=== PATIENT | female | born 1955 | race African-American/Black ===

== ENCOUNTER 2023-04-01 09:03 | Emergency (ER) | payer OTHER ==
[~2023-04-01] VITALS: Ht 157.5 cm; Wt 73.0 kg
[2023-04-01 10:16] VITALS: BP 157/87; PULSE 57; RESP 16; O2SAT 98
[2023-04-01] MEDS ORDERED: KETOROLAC TROMETH 30 MG/ML 1ML VIAL IM ONE (11:00)
[2023-04-01] MEDS ORDERED: ACETAMINOPHEN 500 MG TAB PO ONE (11:00)
[2023-04-01 12:17] VITALS: TEMP 97.7
[2023-04-01] MEDS ORDERED: NABU-72 PO (12:31)
== END 2023-04-01 12:36 | disposition home or self-care (01) ==
LOC: ER 09:03
DX: R51.9 Headache, unspecified (principal); Z79.899 Other long term (current) drug therapy
CPT/HCPCS: 70450; 96372; 99285; J1885

== ENCOUNTER 2023-08-27 09:32 | Emergency (ER) | payer OTHER ==
[~2023-08-27] VITALS: Ht 157.5 cm; Wt 72.9 kg
[~2023-08-27 09:32] MED LIST: NABU-72 PO
[2023-08-27 10:47] LABS: Eosinophils # (auto) 0.1 10 ^3/uL (0-0.8); Lymphocytes # (auto) 1.8 10 ^3/uL (0.4-5.4); Monocytes # (auto) 0.3 10 ^3/uL (0-1.3); Monocytes % (auto) 4.5 % (0.0-12.0)
[2023-08-27 10:49] LABS: Basophils # (auto) 0.1 10 ^3/uL (0-0.2); Basophils % (auto) 0.8 % (0.0-2.0); Eosinophils % (auto) 1.4 % (0.0-7.0); Hematocrit 34.5 % (36.0-46.0); Lymphocytes % (auto) 25.3 % (10.0-50.0); Mean Corpuscular Hemoglobin 23.7 pg (28.0-32.0); Mean Corpuscular Hgb Conc. 31.9 g/dL (32.0-36.0); Mean Corpuscular Volume 74.3 fL (80.0-100.0); Red Blood Cells 4.64 10^6/uL (4.0-5.20); Red Cell Distribution Width 18.2 % (11.8-14.3); White Blood Cell 7.3 10^3/uL (4.4-10.8)
[2023-08-27 10:58] LABS: Chloride 107 mmol/L (98-107); Potassium 3.9 mmol/L (3.5-5.1); Sodium 138 mmol/L (136-145)
[2023-08-27 10:59] LABS: Anion Gap 6 (5-15); Calcium 10.2 mg/dL (8.5-10.1); Carbon Dioxide 25 mmol/L (20-30)
[2023-08-27 11:02] VITALS: PULSE 65; RESP 18; TEMP 97.5; O2SAT 100
[2023-08-27 11:04] LABS: Blood Urea Nitrogen 23 mg/dL (9-23); Glucose 106 mg/dL (74-106)
[2023-08-27 11:06] LABS: Urine Bacteria None Seen /hpf (None Seen)
[2023-08-27 11:26] LABS: Urine Blood Negative /uL (Negative); Urine Clarity Clear (Clear); Urine Color Colorless (Yellow); Urine Protein, UAD Negative (Negative); Urine Specific Gravity 1.009 (1.001-1.035); Urine Urobilinogen Normal (Negative); Urine WBC 4 /hpf (0 - 5); Urine pH 5.5 (5.0-9.0)
[2023-08-27] MEDS ORDERED: CIPR-173 PO (11:49)
[2023-08-27 11:54] VITALS: BP 151/80; PULSE 60; RESP 16; O2SAT 99
== END 2023-08-27 11:59 | disposition home or self-care (01) ==
LOC: ER 09:32
DX: N39.0 Urinary tract infection, site not specified (principal); R42 Dizziness and giddiness; I10 Essential (primary) hypertension; Z98.890 Other specified postprocedural states
CPT/HCPCS: 36415; 70450; 80048; 81001; 85025

== ENCOUNTER 2024-10-01 16:15 | Inpatient (IN) | payer OTHER ==
[~2024-10-01] VITALS: Ht 157.5 cm; Wt 85.6 kg
[~2024-10-01 16:15] MED LIST changes: +CIPR-173 PO
--- NOTE | 2024-10-01 17:07 | ED.PDOC ---
HPI (NEURO) HPI Comments This is a 69 year old female presents to the ED with chief complaint of headache. Patient reports that she has been experience a headache with associated generalized malaise for the past 2 days. Patient relays that she also had episodes of nausea and vomiting, but it has since resolved. Patient noted in triage to have a BP of 80/51 but does have a history of hypertension and states that she is medication compliant. Patient does not consistently take her blood pressure for true evaluation. Patient denies any abdominal pain, chest pain, SOB, dizziness, fever, or chills. Chief Complaint: Low Blood Pressure Time Seen by MD: 17:03 Primary Care Provider: Unknown Reviewed Notes: Nurses Notes, Medications, Allergies Information Source: Patient Mode of Arrival: Ambulatory Severity: Moderate Headache Severity: Moderate Timing: Hours Duration: Since onset Prehospital treatment: None Headache Quality: Aching Headache Location: Generalized Onset: At rest Circumstances: Spontaneous Before: Normal History of: None Associated Signs and Symptoms: Headache, Weakness Past Medical History PAST MEDICAL HISTORY: HTN Surgical History: , Tubal Ligation SENIOR TECHNICAL EDITOR History: No Pertinent SENIOR TECHNICAL EDITOR History Family History Family History: Reviewed,noncontributory to illness, Family hx of HTN Social History Smoker: Non-Smoker Alcohol: Denies ETOH Use Drugs: Denies Drug Use Lives In: Home Constitutional: reports: fatigue, malaise, weakness; denies: chills, diaphoresis, fever, sweats, others EENTM: denies: blurred vision, double vision, ear bleeding, ear discharge, ear drainage, ear pain, ear ringing, eye pain, eye redness, hearing loss, mouth pain, mouth swelling, nasal discharge, nose bleeding, nose congestion, nose pain, photophobia, tearing, throat pain, throat swelling, voice changes, others Respiratory: denies: cough, hemoptysis, orthopnea, SOB at rest, shortness of breath, SOB with excertion, stridor, wheezing, others Cardiovascular: denies: chest pain, dizzy spells, diaphoresis, Dyspnea on exertion, edema, irregular heart beat, left arm pain, lightheadedness, palpitations, PND, syncope, others Gastrointestinal: reports: nausea, vomiting; denies: abdomen distended, abdominal pain, blood streaked bowels, constipated, diarrhea, dysphagia, difficulty swallowing, hematemesis, melena, poor appetite, poor fluid intake, rectal bleeding, rectal pain, others Genitourinary: denies: abnormal vagina bleeding, burning, dyspareunia, dysuria, flank pain, frequency, hematuria, incontinence, pain, , vagina discharge, urgency, others Neurological: reports: headache; denies: dizziness, fainting, left sided numbness, left sided weakness, numbness, paresthesia, pre-existing deficit, right sided numbness, right sided weakness, seizure, speech problems, tingling, tremors, weakness, others Musculoskeletal: denies: back pain, gout, joint pain, joint swelling, muscle pain, muscle stiffness, neck pain, others Integumetry: denies: bruises, change in color, change in hair/nails, dryness, laceration, lesions, lumps, rash, wounds, others Allergic/Immunocompromised: denies: Difficulty Healing, Frequent Infections, Hives, Itching, others Hematologic/Lymphatic: denies: anemia, blood clots, easy bleeding, easy bruising, swollen glands, others Endocrine: denies: excessive hunger, excessive sweating, excessive thirst, excessive urination, flushing, intolerance to cold, intolerance to heat, unexplained weight gain, unexplained weight loss, others Psychiatric: denies: anxiety, bipolar disorder, depression, hopeless, panic disorder, schizophrenia, sleepless, suicidal, others All Other Systems: Reviewed and Negative Physical Exam General Appearance: Moderate Distress ([id number] distress due to headache and weakness concerns. Patient appears to be in poor overall health.), Normal HEENT: Head (Cranial evaluation was unremarkable. No signs of trauma. No skull depressions or deformities.), Normal ENT Inspection, Pharynx Normal, TMs Normal Neck: Full Range of Motion, Non-Tender, Normal, Normal Inspection Respiratory: Chest Non-Tender, Lungs Clear, No Accessory Muscle Use, No Respiratory Distress, Normal Breath Sounds Cardiovascular: No Edema, No JVD, No Murmur, No Gallop, Normal Peripheral Pulses, Regular Rate/Rhythm Breast Exam: Deferred Gastrointestinal: No Organomegaly, Non Tender, No Pulsatile Mass, Normal Bowel Sounds, Soft Genitalia: Deferred Pelvic: Deferred Rectal: Deferred Extremities: No calf tenderness, Normal capillary refill, Normal inspection, Normal range of motion, Non-tender, No pedal edema Neurologic: Alert, No Motor Deficits, Normal Affect, Normal Mood, No Sensory Deficits Cerebellar Function: Normal Reflexes: Normal Skin: Dry, Normal Color, Warm Lymphatic: No Adenopathy Was a procedure done? Was a procedure done?: No Differential Diagnosis (SZ) Seizure: Other (Hypotension, headache, electrolyte abnormality, sepsis, UTI) X-Ray, Labs, Meds, VS Vital Signs Date Time Temp Pulse Resp B/P (MAP) Pulse Ox O2 Delivery O2 Flow Rate FiO2 10/01/24 18:40 102/64 (77) 10/01/24 17:59 98.0 69 18 89/58 (68) 98 98.0 10/01/24 17:14 84 19 98 Room Air* 0 21 10/01/24 16:49 67 10/01/24 16:42 97.7 78 20 80/47 (58) 98 97.7 Lab Test 10/01/24 20:05 10/01/24 18:11 10/01/24 17:03 10/01/24 16:40 Range/Units Troponin I High Sensitivity 14 14 16 </=34 ng/L White Blood Count 14.0 H 4.4-10.8 10^3/uL Red Blood Count 5.51 H 4.0-5.20 10^6/uL Hemoglobin 13.6 12.2-16.2 g/dL Hematocrit 41.9 36.0-46.0 % Mean Corpuscular Volume 76.1 L 80.0-100.0 fL Mean Corpuscular Hemoglobin 24.7 L 28.0-32.0 pg Mean Corpuscular Hemoglobin Concent 32.4 32.0-36.0 g/dL Red Cell Distribution Width 17.5 H 11.8-14.3 % Platelet Count 216 140-450 10^3/uL Mean Platelet Volume 9.2 6.9-10.8 fL Neutrophils (%) (Auto) 78.3 37.0-80.0 % Lymphocytes (%) (Auto) 15.0 10.0-50.0 % Monocytes (%) (Auto) 6.3 0.0-12.0 % Eosinophils (%) (Auto) 0.2 0.0-7.0 % Basophils (%) (Auto) 0.2 0.0-2.0 % Neutrophils # (Auto) 10.9 H 1.6-8.6 10 ^3/uL Lymphocytes # (Auto) 2.1 0.4-5.4 10 ^3/uL Monocytes # (Auto) 0.9 0-1.3 10 ^3/uL Eosinophils # (Auto) 0 0-0.8 10 ^3/uL Basophils # (Auto) 0 0-0.2 10 ^3/uL Nucleated Red Blood Cells 0.1 % Sodium Level 130 L 136-145 mmol/L Potassium Level 3.5 3.5-5.1 mmol/L Chloride Level 94 L 98-107 mmol/L Carbon Dioxide Level 23 20-31 mmol/L Anion Gap 13 5-15 Blood Urea Nitrogen 25 H 9-23 mg/dL Creatinine 3.77 H 0.550-1.02 mg/dL Glomerular Filtration Rate Calc 12 >90 mL/min BUN/Creatinine Ratio 6.6 L 10.0-20.0 Serum Glucose 117 H 74-106 mg/dL Lactic Acid Level 1.9 0.4-2.0 mmol/L Calcium Level 10.2 8.7-10.4 mg/dL Total Bilirubin 0.8 0.2-1.0 mg/dL Aspartate Amino Transferase (AST) 19 13-40 U/L Alanine Aminotransferase (ALT) 14 7-40 U/L Alkaline Phosphatase 193 H 46-116 U/L Total Protein 7.8 5.7-8.2 g/dL Albumin 4.8 3.2-4.8 g/dL Lipase 36 12-53 U/L POC Glucose 121 H 70-106 mg/dl Current Medications Medications (Trade) Dose Ordered Sig/Gwen Route Start Time Stop Time Status Last Admin Sodium Chloride 1,000 ml @ 250 mls/hr Q4H ONCE IV 10/01/24 16:45 10/01/24 20:44 DC 10/01/24 17:11 Ondansetron HCl (Zofran Po) 4 mg ONCE ONCE PO 10/01/24 16:45 10/01/24 16:46 DC 10/01/24 17:13 Ceftriaxone Sodium 50 ml @ 100 mls/hr ONCE ONCE IV 10/01/24 21:30 10/01/24 21:59 DC 10/01/24 22:32 X-Ray, Labs, Meds, VS Comment All studies performed the ED were evaluated by me personally. Urinalysis was pending at time of this note. Serum laboratories revealed a leukocytosis, hyponatremia, elevated alk-phos and what appears to be in acute on chronic renal concern. EKG revealed a sinus rhythm with a rate of 69. Right atrial enlargement was noted as well as abnormal R-wave progression and artifact in multiple leads. OR interval 170 and QT interval 401. Patient's hypotensive state was concerning therefore, patient will be admitted for evaluation of hypotensive concerns as well as what appears to be a progressive renal concern. Waiting on urine as that may be the source of the leukocytosis concerns. Patient's insurance his choice and therefore, I spoke with provider Marlin Segura. Advised her of patient presentation as well as laboratory and imaging studies. She agreed to accept the patient as an admission. Time of 1ST Reevaluation: 21:22 Reevaluation 1ST: Improved Consultation: PCP, Cardiology Patient Education/Counseling: Diagnosis, Treatment Family Education/Counseling: Diagnosis, Treatment, No Family Present Departure 1 Departure Time of Disposition: 21:23 Impression: Primary Impression: Hypotension Additional Impressions: Leukocytosis Hyponatremia [id number] kidney injury Disposition: ADMITTED INPATIENT Condition: Fair Discharged With: Self Critical Care Note Critical Care Time?: No Stability Stability form required: No Heart Score Heart Score: Heart Score Response (Comments) Value History Slightly Suspicious 0 EKG Repolarization Disturb 1 Age >65 2 Risk Factors 1 or 2 risk factors 1 Troponin Normal limit 0 Total 4 I personally scribed for CATHRYN AWAN PAC ([email or web address]) on 10/01/24 at 17:07. Electronically submitted by Joe Potts ([email or web address]). CATHRYN AWAN PAC Oct 01, 2024 17:07
[2024-10-01] MEDS: SODIUM CHLORIDE 0.9% 1,000 ML IV ONE (17:11)
[2024-10-01] MEDS: ONDANSETRON ODT 4 MG TAB PO ONE (17:13)
[2024-10-01 17:14] VITALS: PULSE 84; RESP 19; O2SAT 98
[2024-10-01 17:34] LABS: Hematocrit 41.9 % (36.0-46.0); Mean Corpuscular Hemoglobin 24.7 pg (28.0-32.0)
[2024-10-01 17:35] LABS: Hemoglobin 13.6 g/dL (12.2-16.2); Mean Corpuscular Volume 76.1 fL (80.0-100.0); Nucleated Red Blood Cells % 0.1 %
[2024-10-01 17:43] LABS: Alanine Aminotransferase 14 U/L (7-40); Albumin 4.8 g/dL (3.2-4.8); Anion Gap 13 (5-15); BUN/Creatinine Ratio 6.6 (10.0-20.0); Calcium 10.2 mg/dL (8.7-10.4); Carbon Dioxide 23 mmol/L (20-31); Lipase 36 U/L (12-53); Total Protein 7.8 g/dL (5.7-8.2)
[2024-10-01 17:44] LABS: Bilirubin, Total 0.8 mg/dL (0.2-1.0)
[2024-10-01 18:05] LABS: Alkaline Phosphatase 193 U/L (46-116); Blood Urea Nitrogen 25 mg/dL (9-23); Chloride 94 mmol/L (98-107); Glucose 117 mg/dL (74-106); Potassium 3.5 mmol/L (3.5-5.1); Sodium 130 mmol/L (136-145)
[2024-10-01] MEDS: cefTRIAXone 1GM/50ML D5W 50 ML IV ONE (22:32)
[2024-10-02] VITALS (8 sets, daily range): BP systolic 104–114; BP diastolic 62–71; PULSE 63–81; RESP 17–19; TEMP 97.1–98.8; O2SAT 96–100
--- NOTE | 2024-10-02 01:02 | DVH ---
CT BRAIN WITHOUT CONTRAST HISTORY: headache TECHNIQUE: Axial scans were obtained from the skull base through the vertex without contrast. Sagitta l and coronal reformats were generated. One or more of the following radiation dose reduction techniq ues were used for this examination: automated exposure control, adjustment of the mA and/or kV accord ing to patient size, use of iterative reconstruction technique. COMPARISON: CT HEAD WITHOUT CONTRAST on DOS: 08/27/23 FINDINGS: No acute intracranial hemorrhage or evidence of large vessel territorial infarction identified at thi s time. No midline shift. The basilar cisterns are patent. Barry-white differentiation appears relati vely preserved. Small left basal ganglia calcification again noted. The visualized paranasal sinuses and mastoid air cells are clear. No grossly displaced calvarial abno rmalities identified. IMPRESSION: No acute intracranial findings.
--- NOTE | 2024-10-02 01:11 | DVH ---
INDICATION: saranya TECHNIQUE: Multiple real-time sonographic images of the kidneys and bladder were obtained. COMPARISON: None FINDINGS: RIGHT kidney measures 7.3 cm in length with decreased cortical thickness. No hydronephrosis. LEFT kidney measures 8.2 cm in length with decreased cortical thickness. No hydronephrosis. No large intraluminal masses are seen in the bladder. Post void residual was not assessed. IMPRESSION: 1. Decreased bilateral renal cortical thickness. Otherwise, unremarkable examination.
--- NOTE | 2024-10-02 01:28 | DVHHP2 ---
Admitting Diagnosis: PHILIP, Hypotension, Leukocytosis History of Present Illness History Source: Patient Exam Limitations: No limitations HPI Mrs. Anaya Jackman is a 69 year old female with a history of hypertension who presents with chief complaint of headache. Patient reports that she has been experience a headache, dizziness, lightheadedness with associated generalized malaise for the past 2 days. Patient relays that she also had episodes of nausea and vomiting, but it has since resolved. Patient found to have blood pressure of 81/50. Patient does not consistently take her blood pressure for true evaluation. Patient denies any kidney disease history. Patient denies any abdominal pain, chest pain, SOB, dizziness, fever, or chills. Home Meds Active Scripts Ciprofloxacin Hcl (Cipro) 500 Mg Tab, 1 TAB PO BID, #14 TAB Prov:NOHEMI MORATAYA MD 08/27/23 Nabumetone (Nabumetone) 500 Mg Tab, 1 TAB PO BID PRN, #20 TAB Prov:KOLTON PORTER 04/01/23 Reported Medications Hctz (Hydrochlorothiazide) 25 Mg Tab, 1 TAB PO DAILY 10/02/24 Lisinopril (Lisinopril) 20 Mg Tab, 1 TAB PO DAILY 10/02/24 Metoprolol Tartrate (Lopressor) 25 Mg Tb, 1 TAB PO BID 10/02/24 Past Medical History Cardiac: HTN Pulmonary: No pertinent Hx Central Nervous System: No pertinent Hx GI: No pertinent Hx Hemotology/Oncology: No pertinent Hx Hepatobiliary: No pertinent Hx Psychiatric: No pertinent Hx Musculoskeletal: No pertinent Hx Rheumotologic: No pertinent Hx Infectious Disease: No peritnent Hx ENT: No pertinent Hx Renal/: No pertinent Hx Endocrine: No pertinent Hx Dermatology: No pertinent Hx Smoker: <1 pack per day Alocohol: None Drugs: None Domestic Violence: Neg Review of Systems Constitutional: No symptom reported Ears, Nose, & Throat: No symptom reported Eyes: No symptom reported Pulmonary/Respiratory: No symptom reported Cardiovascular: No symptom reported Gastrointestinal: No symptom reported Genitourinary: No symptom reported Musculoskeletal: No symptom reported Skin: No symptom reported Psychiatric: No symptom reported Endocrine: No symptom reported Hemotologic/Lymphatic: No symptom reported H&P Exam Vital Signs Vital Signs Date Time Temp Pulse Resp B/P (MAP) Pulse Ox O2 Delivery O2 Flow Rate FiO2 10/02/24 00:00 61 15 92/45 (61) 96 10/01/24 17:59 98.0 98.0 10/01/24 17:14 Room Air* 0 21 General Appeara: Well developed, Well nourished, Normal Appearance Head Exam: Normal inspection Neck Exam: Normal inspection, Non-tender, Normal alignment Eye Exam: bilateral eye Normal inspection, bilateral eye PERRL, bilateral eye EOMI Ear Exam: bilateral ear Auricle normal Nasal Exam: Normal inspection Mouth: Normal Inspection Pulmonary/Respiratory: Normal inspection, Normal breath sounds, Chest non- tender, Lungs clear Cardiovascular/Chest: Normal inspection, Regular rate, Normal Rhythm, Other (S1-S2) Peripheral Pulses: 2+ dorsalis pedis (R), 2+ dorsalis pedis (L), 2+ Radial (R), 2+ Radial (L) Abdominal Exam: Normal bowel sounds, Soft, No tenderness Rectal Exam: Deferred Back Exam: Normal inspection Legs: bilateral leg non-tender, bilateral leg normal inspection, 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, Normal speech, PERRL Motor/Sensory: Normal sensory function, Normal motor function Neuro/Mental St: Alert, Oriented Appearance: Appropriate appearance, Appropriate insight Eye contact/ Speech: Cooperative, Good eye contact, Normal speech Thoughts/Psych: Normal thought pattern Skin Exam: Normal inspection, Normal color, Warm/dry SEPSIS Sepsis Screen Date sepsis recognized/suspect: Oct 01, 2024 Time Sepsis recognized/suspect: 1643 Recent Procedure: No On Antibiotic Therapy: No Respiratory Rate >20: No Heart Rate >90: No Temp<36 C (96.8 F) or >38.3 C: No SBP <90 or MAP <65 mmHG: No New Acute Mental Status Change: No Is the patient on CPAP, BIPAP,: No Physician Orders Blood Culture (10/01/24 21:17) Head Without Contrast (10/01/24 22:40) Acetaminophen Tablet (Tylenol Tablet) (10/01/24 22:45) Kidney (10/01/24 22:40) *Dr. Hernadez [facility] (10/01/24 22:40) Basic Metabolic Panel (10/02/24 04:00) Complete Blood Count (10/02/24 04:00) Sodium Chloride 0.9% (10/02/24 01:30) Ondansetron Hcl (Zofran) (10/02/24 01:30) Admit (10/02/24 01:20) Full Code (10/02/24 01:20) Stat Ekg For Chest Pain (10/02/24 01:20) Notify Of Changes From Base (10/02/24 01:20) Production Potter For 24 Hours (10/02/24 01:20) Emergency Dysrhythmia Protocol (10/02/24 01:20) Rhythm Strips Once Every Shift (10/02/24 01:20) Oxygen By Nasal Cannula (10/02/24 01:20) Famotidine Tablet (Pepcid Tablet) (10/02/24 10:00) Enoxaparin Sodium (Lovenox) (10/02/24 10:00) Comprehensive Metabolic Panel (10/02/24 04:00) Vital Signs Date Time Temp Pulse Resp B/P (MAP) Pulse Ox O2 Delivery O2 Flow Rate FiO2 10/02/24 00:00 61 15 92/45 (61) 96 10/01/24 23:00 69 16 112/70 (84) 97 10/01/24 21:00 71 13 95/59 (71) 10/01/24 19:00 68 19 95/61 (72) 98 10/01/24 18:40 102/64 (77) 10/01/24 17:59 98.0 69 18 89/58 (68) 98 98.0 Laboratory Tests Test 10/01/24 17:03 Lactic Acid Level 1.9 mmol/L (0.4-2.0) White Blood Count 14.0 10^3/uL (4.4-10.8) H Medications Medications Dose Ordered Sig/Gwen Route Start Time Stop Time Status Last Admin Dose Admin Ceftriaxone Sodium 50 ml @ 100 mls/hr ONCE ONCE IV 10/01/24 21:30 10/01/24 21:59 DC 10/01/24 22:32 100 MLS/HR Ondansetron HCl 4 mg ONCE ONCE PO 10/01/24 16:45 10/01/24 16:46 DC 10/01/24 17:13 4 MG Sodium Chloride 1,000 ml @ 250 mls/hr Q4H ONCE IV 10/01/24 16:45 10/01/24 20:44 DC 10/01/24 17:11 250 MLS/HR Labs/Xrays Labs Test 10/01/24 20:05 10/01/24 17:03 10/01/24 16:40 Range/Units Troponin I High Sensitivity 14 </=34 ng/L White Blood Count 14.0 H 4.4-10.8 10^3/uL Red Blood Count 5.51 H 4.0-5.20 10^6/uL Hemoglobin 13.6 12.2-16.2 g/dL Hematocrit 41.9 36.0-46.0 % Mean Corpuscular Volume 76.1 L 80.0-100.0 fL Mean Corpuscular Hemoglobin 24.7 L 28.0-32.0 pg Mean Corpuscular Hemoglobin Concent 32.4 32.0-36.0 g/dL Red Cell Distribution Width 17.5 H 11.8-14.3 % Platelet Count 216 140-450 10^3/uL Mean Platelet Volume 9.2 6.9-10.8 fL Neutrophils (%) (Auto) 78.3 37.0-80.0 % Lymphocytes (%) (Auto) 15.0 10.0-50.0 % Monocytes (%) (Auto) 6.3 0.0-12.0 % Eosinophils (%) (Auto) 0.2 0.0-7.0 % Basophils (%) (Auto) 0.2 0.0-2.0 % Neutrophils # (Auto) 10.9 H 1.6-8.6 10 ^3/uL Lymphocytes # (Auto) 2.1 0.4-5.4 10 ^3/uL Monocytes # (Auto) 0.9 0-1.3 10 ^3/uL Eosinophils # (Auto) 0 0-0.8 10 ^3/uL Basophils # (Auto) 0 0-0.2 10 ^3/uL Nucleated Red Blood Cells 0.1 % Sodium Level 130 L 136-145 mmol/L Potassium Level 3.5 3.5-5.1 mmol/L Chloride Level 94 L 98-107 mmol/L Carbon Dioxide Level 23 20-31 mmol/L Anion Gap 13 5-15 Blood Urea Nitrogen 25 H 9-23 mg/dL Creatinine 3.77 H 0.550-1.02 mg/dL Glomerular Filtration Rate Calc 12 >90 mL/min BUN/Creatinine Ratio 6.6 L 10.0-20.0 Serum Glucose 117 H 74-106 mg/dL Lactic Acid Level 1.9 0.4-2.0 mmol/L Calcium Level 10.2 8.7-10.4 mg/dL Total Bilirubin 0.8 0.2-1.0 mg/dL Aspartate Amino Transferase (AST) 19 13-40 U/L Alanine Aminotransferase (ALT) 14 7-40 U/L Alkaline Phosphatase 193 H 46-116 U/L Total Protein 7.8 5.7-8.2 g/dL Albumin 4.8 3.2-4.8 g/dL Lipase 36 12-53 U/L POC Glucose 121 H 70-106 mg/dl Assessment/Plan Problem List: (1) PHILIP (acute kidney injury) (2) Hypotension (3) Leukocytosis Plan This is a 69 yo female with known history of hypertension who presents to the hospital with headaches with associated malaise, patient was found to have 1. Acute Kidney Injury 2. Hypotension 3. Leukocytosis 4. Hx of Hypertension Plan Admit Telemetry unit Nephrology consultation, Renal US, monitor BMP IV fluids NS Blood cultures, urine culture Empiric IV antibiotic GI ppx DVT ppx Discussed all above with patient who verbalizes agreement and understanding of care plan. All questions were answered. Plan discussed with: Patient, Other Code Visit Code Visit Total Time (mins): 45 Additional Comments Additional Comments Additional Comments Patient's chart is reviewed and discussed with the nurse practitioner. Patient seen evaluated and admitted by nurse practitioner this morning. I agree with the her evaluation, documentation, assessment and care plan as outlined. Patient is seen and evaluated by me before noon. Discussed with the patient and nurse at bedside regarding care plan. CLYDE BARROW Oct 02, 2024 01:28 DANN GRANT MD Oct 02, 2024 11:57
[2024-10-02] MEDS ORDERED: ONDANSETRON HCL 4 MG/2 ML VIAL IV PRN (01:30)
[2024-10-02] MEDS: SODIUM CHLORIDE 0.9% 1,000 ML IV SCH ×2 (01:42→12:00)
[2024-10-02] MEDS ORDERED: cefTRIAXone 1GM/50ML D5W 50 ML IV ONE (01:45)
[2024-10-02] MEDS ORDERED: LISI20TA56 PO (04:24)
[2024-10-02] MEDS ORDERED: MET25T PO (04:24)
[2024-10-02] MEDS ORDERED: HYDR25TA5 PO (04:24)
[2024-10-02 06:31] LABS: Hematocrit 36.2 % (36.0-46.0); Hemoglobin 11.9 g/dL (12.2-16.2); Mean Corpuscular Hemoglobin 25.2 pg (28.0-32.0); Mean Corpuscular Volume 76.6 fL (80.0-100.0); Nucleated Red Blood Cells % 0.0 %
--- NOTE | 2024-10-02 07:09 | ECG ---
[facility] Test Date: 2024-10-01 Test Time: 16:49:35 Pat Name: MONICA PACE Department: er Room: [facility]2T A Gender: F Day Care Teacher: fabio : 1955 Requested By: CATHRYN AWAN Order Number: [id number] Reading MD: Christiano Britton Measurements Intervals [place] Rate: 67 P: 64 MO: 172 QRS: 48 QRSD: 89 T: 64 QT: 439 QTc: 464 Interpretive Statements Sinus rhythm Electronically Signed On 10-05-2024 15:51:32 PDT by Christiano Britton Please click the below link to view image of tracing.
[2024-10-02 08:03] LABS: Alanine Aminotransferase 14 U/L (7-40); Albumin 3.9 g/dL (3.2-4.8); Alkaline Phosphatase 158 U/L (46-116); Anion Gap 13 (5-15); BUN/Creatinine Ratio 6.8 (10.0-20.0); Bilirubin, Total 0.5 mg/dL (0.2-1.0); Blood Urea Nitrogen 25 mg/dL (9-23); Calcium 9.8 mg/dL (8.7-10.4); Carbon Dioxide 19 mmol/L (20-31); Chloride 100 mmol/L (98-107); Glucose 92 mg/dL (74-106); Potassium 3.6 mmol/L (3.5-5.1); Sodium 132 mmol/L (136-145); Total Protein 6.6 g/dL (5.7-8.2)
[2024-10-02] MEDS: ACETAMINOPHEN 325 MG TAB PO PRN (08:38)
--- NOTE | 2024-10-02 09:58 | DVHINCON2 ---
Date of service: Oct 02, 2024 Referring Physician Hospitalist Reason for Consultation Acute kidney injury History of Present Illness 69-year-old female past medical history of hypertension denies any other chronic medical conditions who presents to the hospital after near syncopal episode. Patient reports she had an episode of mild blurry vision of the left eye and dizziness while reading with near syncope. She presents to the hospital and upon presentation is noted to have hypotension. She was admitted for syncope rule out TIA and acute kidney injury. Creatinine was greater than three no previous baseline and she reports that her primary doctor who she has had for several years has not mentioned any history of kidney problems. She also denies smoking Past Medical History Hypertension- takes lisinopril, hydrochlorothiazide, metoprolol Allergies: Coded Allergies: NO KNOWN ALLERGIES (Unverified , 04/01/23) Home Meds Active Scripts Ciprofloxacin Hcl (Cipro) 500 Mg Tab, 1 TAB PO BID, #14 TAB Prov:NOHEMI MORATAYA MD 08/27/23 Nabumetone (Nabumetone) 500 Mg Tab, 1 TAB PO BID PRN, #20 TAB Prov:KOLTON PORTER 04/01/23 Reported Medications Hctz (Hydrochlorothiazide) 25 Mg Tab, 1 TAB PO DAILY 10/02/24 Lisinopril (Lisinopril) 20 Mg Tab, 1 TAB PO DAILY 10/02/24 Metoprolol Tartrate (Lopressor) 25 Mg Tb, 1 TAB PO BID 10/02/24 Current Medications Current Medications Medications (Trade) Dose Ordered Sig/Gwen Route PRN Reason Start Time Stop Time Status Last Admin Acetaminophen (Tylenol Tablet) 650 mg Q6HPRN PRN PO PAIN SCALE 1-3 OR TEMP>100.4 10/01/24 22:45 10/02/24 08:38 Sodium Chloride 1,000 ml @ 100 mls/hr Q10H IV 10/02/24 01:30 10/02/24 01:42 Ondansetron HCl (Zofran) 4 mg Q6HPRN PRN IV NAUSEA OR VOMITING 10/02/24 01:30 Famotidine (Pepcid Tablet) 20 mg BID PO 10/02/24 10:00 UNV Enoxaparin Sodium (Lovenox) 40 mg DAILY SC 10/02/24 10:00 UNV Famotidine (Pepcid Tablet) 10 mg DAILY PO 10/02/24 10:00 Enoxaparin Sodium (Lovenox) 30 mg DAILY SC 10/02/24 10:00 Ceftriaxone Sodium 50 ml @ 100 mls/hr DAILY@09 IV 10/03/24 09:00 Family History: Patient reports no known family medical history. Review of Systems Near-syncope H&P Exam Vital Signs/I&O Vital Sign Date Time Temp Pulse Resp B/P (MAP) Pulse Ox O2 Delivery O2 Flow Rate FiO2 10/02/24 04:37 Room Air* 0 21 10/02/24 04:37 98.6 65 18 104/62 (76) 98 98.6 Intake and Output 10/01/24 10/02/24 19:00 07:00 Intake Total 700 ml Balance 700 ml Intake Oral 200 ml IV Total 500 ml # Voids 1 Physical Exam female Alert and oriented Nonacute distress Abdomen is soft No pitting edema Labs/Diagnostic Data Labs/Diagnostic Data Laboratory Tests Test 10/02/24 05:37 10/01/24 20:05 10/01/24 18:11 10/01/24 17:03 Range/Units White Blood Count 10.7 14.0 H 4.4-10.8 10^3/uL Red Blood Count 4.73 5.51 H 4.0-5.20 10^6/uL Hemoglobin 11.9 L 13.6 12.2-16.2 g/dL Hematocrit 36.2 # 41.9 36.0-46.0 % Mean Corpuscular Volume 76.6 L 76.1 L 80.0-100.0 fL Mean Corpuscular Hemoglobin 25.2 L 24.7 L 28.0-32.0 pg Mean Corpuscular Hemoglobin Concent 32.9 32.4 32.0-36.0 g/dL Red Cell Distribution Width 17.4 H 17.5 H 11.8-14.3 % Platelet Count 168 216 140-450 10^3/uL Mean Platelet Volume 9.2 9.2 6.9-10.8 fL Neutrophils (%) (Auto) 71.7 78.3 37.0-80.0 % Lymphocytes (%) (Auto) 20.8 15.0 10.0-50.0 % Monocytes (%) (Auto) 6.7 6.3 0.0-12.0 % Eosinophils (%) (Auto) 0.6 0.2 0.0-7.0 % Basophils (%) (Auto) 0.2 0.2 0.0-2.0 % Neutrophils # (Auto) 7.7 10.9 H 1.6-8.6 10 ^3/uL Lymphocytes # (Auto) 2.2 2.1 0.4-5.4 10 ^3/uL Monocytes # (Auto) 0.7 0.9 0-1.3 10 ^3/uL Eosinophils # (Auto) 0.1 0 0-0.8 10 ^3/uL Basophils # (Auto) 0 0 0-0.2 10 ^3/uL Nucleated Red Blood Cells 0.0 0.1 % Sodium Level 132 L 130 L 136-145 mmol/L Potassium Level 3.6 3.5 3.5-5.1 mmol/L Chloride Level 100 94 L 98-107 mmol/L Carbon Dioxide Level 19 L 23 20-31 mmol/L Anion Gap 13 13 5-15 Blood Urea Nitrogen 25 H 25 H 9-23 mg/dL Creatinine 3.66 H 3.77 H 0.550-1.02 mg/dL Glomerular Filtration Rate Calc 13 12 >90 mL/min BUN/Creatinine Ratio 6.8 L 6.6 L 10.0-20.0 Serum Glucose 92 117 H 74-106 mg/dL Calcium Level 9.8 10.2 8.7-10.4 mg/dL Total Bilirubin 0.5 0.8 0.2-1.0 mg/dL Aspartate Amino Transferase (AST) 19 19 13-40 U/L Alanine Aminotransferase (ALT) 14 14 7-40 U/L Alkaline Phosphatase 158 H 193 H 46-116 U/L Total Protein 6.6 7.8 5.7-8.2 g/dL Albumin 3.9 4.8 3.2-4.8 g/dL Troponin I High Sensitivity 14 14 16 </=34 ng/L Lactic Acid Level 1.9 0.4-2.0 mmol/L Lipase 36 12-53 U/L Test 10/01/24 16:40 Range/Units POC Glucose 121 H 70-106 mg/dl Assessment 69-year-old female past medical history of hypertension for several years presents to the hospital with near syncopal episode. She was found to have hypotension as well as acute kidney injury with a creatinine greater than three. Acute kidney injury hemodynamically mediated in the setting of hypotension possibly drug induced Hypertension on multiple blood pressure medications Near-syncope CKD baseline unknown no previous records Agree with continuing IV fluids for now US kidney shows ckd Hold patient's blood pressure medications she takes ALFREDO inhibitor, thiazide diuretic and beta-marina at home continue to hold all of the above at this time. Rule out TIA versus stroke Obtain urinalysis and urine protein creatinine ratio Obtain outside labs were collateral to obtain baseline renal function. There is no emergent indication for dialysis at this time however patient will require close monitoring and chronic kidney disease assessment and education. care time 55min Plan discussed with: Patient FAUZIA GOMEZ MD Oct 02, 2024 09:58
[2024-10-02] MEDS ORDERED: FAMOTIDINE 20 MG TAB PO SCH (10:00)
[2024-10-02] MEDS ORDERED: ENOXAPARIN SOD 40 MG/0.4 ML SYRINGE SC SCH (10:00)
[2024-10-02] MEDS: ENOXAPARIN SOD 30 MG/0.3 ML SYRINGE SC SCH (11:40)
[2024-10-02] MEDS: FAMOTIDINE 20 MG TAB PO SCH (11:40)
[2024-10-02] MEDS ORDERED: SODIUM CHLORIDE 0.9% 1,000 ML IV SCH (12:00)
[2024-10-02] MEDS ORDERED: HYDROcodone-ACET 5/325MG TAB PO PRN ×2 (12:00)
[2024-10-02 13:12] LABS: Protein, Urine 36.1 mg/dL (1-14)
[2024-10-02 13:27] LABS: Urine Protein, UAD Negative (Negative)
--- NOTE | 2024-10-02 14:15 | DVH ---
CHEST RADIOGRAPH Indication: r/o pNA Technique: Single frontal view of the chest was obtained Comparison: None FINDINGS: Lines and Tubes: None Lungs: No focal consolidation. Pleura: No effusion. No pneumothorax. Cardiomediastinal contours: Unremarkable Bones: No acute osseous abnormality. IMPRESSION: 1. No acute cardiopulmonary disease.
--- NOTE | 2024-10-02 15:42 | DVHSR ---
APPROVED REPORT EXAM: Two-dimensional and M-mode echocardiogram with Doppler and color Doppler. Blood Pressure: 114/71 mmHg INDICATION HTN RISK FACTORS Height: 5'2", Weight: 119 DIMENSIONS LVDd3.6 (3.8-5.7cm)LA (2D)3.4 (1.9-4.0cm)Aortic Root3.0 (2.0-3.7cm) LVDs2.5 (2.5-4.0cm)LA (MM) (1.9-4.0cm)Aortic Cusp Exc1.7 (1.5-2.0cm) EF (%) 65.0 (55-70%)Rt. Atrium3.4 (1.9-4.0cm)Asc. Aorta cm IVSd1.0 (0.7-1.1cm)RV (D) (1.8-2.4cm) PWd1.1 (0.7-1.1cm) Mitral Valve MitralMitral Stenosis E wave0.69m/sMV Mean GR.mmHg A wave0.86m/sMV Peak GR.mmHg E/A ratio0.82D MVAcm2 DECEL [id number] 1/2 [place] Aortic Valve Aortic ValveAortic Stenosis V11.56m/[place] Mean GR.8mmHg V22.03m/[place] Peak GR.16mmHg LVOT Diameter1.8 (1.8-2.4cm)Doppler AVA1.95cm2 Pulmonic Valve V20.99m/s Other Information Technically limited study due to body habitus. Conclusion MILD LVH AND MILD LV DIASTOLIC DYSFUNCTION LV EF IS 65% CALCIFIED AORTIC LEAFLETS AORTIC SCLEROSIS NORMAL MV,TV AND PV NORMAL RV FUNCTION AND SIZE NO EFFUSION
[2024-10-03] VITALS (7 sets, daily range): BP systolic 100–149; BP diastolic 53–80; PULSE 60–79; RESP 16–19; TEMP 36.8; O2SAT 97–100
[2024-10-03 07:42] LABS: Mean Corpuscular Hemoglobin 25.3 pg (28.0-32.0)
[2024-10-03 07:43] LABS: Hematocrit 33.6 % (36.0-46.0); Hemoglobin 11.1 g/dL (12.2-16.2); Mean Corpuscular Volume 76.6 fL (80.0-100.0); Nucleated Red Blood Cells % 0.0 %
[2024-10-03 07:47] LABS: Calcium 9.9 mg/dL (8.7-10.4); Chloride 105 mmol/L (98-107); Potassium 3.7 mmol/L (3.5-5.1); Sodium 137 mmol/L (136-145)
[2024-10-03 07:48] LABS: Anion Gap 12 (5-15); Carbon Dioxide 20 mmol/L (20-31)
[2024-10-03 07:54] LABS: BUN/Creatinine Ratio 10.4 (10.0-20.0); Blood Urea Nitrogen 26 mg/dL (9-23); Glucose 89 mg/dL (74-106)
--- NOTE | 2024-10-03 10:45 | DVH ---
PROCEDURE: MRI BRAIN HEAD WO CONTRAST INDICATION: near syncope EXAM DATE: 10/03/2024 08:50 AM COMPARISON: None TECHNIQUE: MRI of the brain without intravenous contrast. FINDINGS: Diffusion weighted images of the brain demonstrate no evidence of acute infarction. There is no evidence of acute intracranial hemorrhage, extra-axial collection, mass effect, midline s hift, herniation or hydrocephalus. The ventricles, sulci and cisterns appear age appropriate. [id number] changes of chronic microvascular ischemic disease. There are no signal abnormalities on the susceptibility weighted sequences. The major vascular flow voids are present. The visualized paranasal sinuses and mastoid air cells are clear. The surrounding soft tissues and o sseous structures are unremarkable. IMPRESSION: 1. No evidence of acute infarction, intracranial hemorrhage, mass effect or hydrocephalus. Mild-to-mo derate changes of chronic microvascular ischemic disease. HS:Y
[2024-10-03] MEDS: cefTRIAXone 1GM/50ML D5W 50 ML IV SCH (10:55)
--- NOTE | 2024-10-03 11:30 | DVHPN2 ---
Progress Note Date Seen: Oct 03, 2024 Objective vital signs Vital Sign Date Time Temp Pulse Resp B/P (MAP) Pulse Ox O2 Delivery O2 Flow Rate FiO2 10/03/24 09:00 98.0 77 18 113/71 (85) 98 98.0 10/02/24 20:00 Room Air* 0 21 Total Intake and Output 10/02/24 10/02/24 10/03/24 15:00 23:00 07:00 Intake Total 250 ml 1325 ml Balance 250 ml 1325 ml medications Current Medications Medications Dose Ordered Sig/Gwen Route Start Time Stop Time Status Last Admin Dose Admin Acetaminophen 650 mg Q6HPRN PRN PO 10/01/24 22:45 10/02/24 08:38 650 MG Ondansetron HCl 4 mg Q6HPRN PRN IV 10/02/24 01:30 Famotidine 20 mg BID PO 10/02/24 10:00 UNV Enoxaparin Sodium 40 mg DAILY SC 10/02/24 10:00 UNV Famotidine 10 mg DAILY PO 10/02/24 10:00 10/03/24 09:55 10 MG Enoxaparin Sodium 30 mg DAILY SC 10/02/24 10:00 10/03/24 09:55 30 MG Ceftriaxone Sodium 50 ml @ 100 mls/hr DAILY@09 IV 10/03/24 09:00 10/03/24 10:55 100 MLS/HR Sodium Chloride 1,000 ml @ 125 mls/hr Q8H IV 10/02/24 12:00 10/03/24 04:00 125 MLS/HR Acetaminophen/ Hydrocodone Bitart 1 tab Q6HPRN PRN PO 10/02/24 12:00 laboratory and microbiology Laboratory Tests 10/03/24 06:40 Test 10/03/24 06:40 Range/Units Serum Glucose 89 74-106 mg/dL Microbiology Date/Time Source Procedure Growth Status 10/01/24 21:30 Blood Blood Culture - Preliminary NO GROWTH AFTER 24 HOURS OF INCUBATION. Resulted Problem List/Assessment/Plan Problem List/Assessment/Plan 69-year-old female past medical history of hypertension for several years presents to the hospital with near syncopal episode. She was found to have hypotension as well as acute kidney injury with a creatinine greater than three. Acute kidney injury hemodynamically mediated in the setting of hypotension possibly drug induced Hypertension on multiple blood pressure medications Near-syncope CKD baseline unknown no previous records slow improvement in renal function Agree with continuing IV fluids for now US kidney shows ckd Hold patient's blood pressure medications she takes ALFREDO inhibitor, thiazide diuretic and beta-marina at home continue to hold all of the above at this time. no proteinuria on UA. When BP starts to rise rec BB and thiazide first line and hold off alfredo-i MRI- chronic microvascular changes Obtain outside labs were collateral to obtain baseline renal function. There is no emergent indication for dialysis at this time however patient will require close monitoring and chronic kidney disease assessment and education. Plan discussed with: Patient Total Time (mins): 33 FAUZIA GOMEZ MD Oct 03, 2024 11:30
[2024-10-03] MEDS ORDERED: AMLO1TAB22 PO (12:31)
[2024-10-03] MEDS ORDERED: BLOO1KIT54 XX (12:35)
--- NOTE | 2024-10-03 12:35 | DVHDS2 ---
Discharge Summary Date of Admission Oct 02, 2024 at 01:20 Date of Discharge: Oct 03, 2024 Labs/Diagnostic Data: Laboratory Results Test 10/03/24 06:40 10/02/24 12:49 10/02/24 05:37 10/01/24 20:05 White Blood Count 7.7 10^3/uL (4.4-10.8) Red Blood Count 4.38 10^6/uL (4.0-5.20) Hemoglobin 11.1 g/dL (12.2-16.2) Hematocrit 33.6 % (36.0-46.0) Mean Corpuscular Volume 76.6 fL (80.0-100.0) Mean Corpuscular Hemoglobin 25.3 pg (28.0-32.0) Mean Corpuscular Hemoglobin Concent 33.0 g/dL (32.0-36.0) Red Cell Distribution Width 17.4 % (11.8-14.3) Platelet Count 175 10^3/uL (140-450) Mean Platelet Volume 9.5 fL (6.9-10.8) Neutrophils (%) (Auto) 66.7 % (37.0-80.0) Lymphocytes (%) (Auto) 25.2 % (10.0-50.0) Monocytes (%) (Auto) 7.2 % (0.0-12.0) Eosinophils (%) (Auto) 0.6 % (0.0-7.0) Basophils (%) (Auto) 0.3 % (0.0-2.0) Neutrophils # (Auto) 5.2 10 ^3/uL (1.6-8.6) Lymphocytes # (Auto) 1.9 10 ^3/uL (0.4-5.4) Monocytes # (Auto) 0.6 10 ^3/uL (0-1.3) Eosinophils # (Auto) 0 10 ^3/uL (0-0.8) Basophils # (Auto) 0 10 ^3/uL (0-0.2) Nucleated Red Blood Cells 0.0 % Sodium Level 137 mmol/L (136-145) Potassium Level 3.7 mmol/L (3.5-5.1) Chloride Level 105 mmol/L (98-107) Carbon Dioxide Level 20 mmol/L (20-31) Anion Gap 12 (5-15) Blood Urea Nitrogen 26 mg/dL (9-23) Creatinine 2.51 mg/dL (0.550-1.02) Glomerular Filtration Rate Calc 20 mL/min (>90) BUN/Creatinine Ratio 10.4 (10.0-20.0) Serum Glucose 89 mg/dL (74-106) Hemoglobin A1c 5.7 % A1C (<5.7) Calcium Level 9.9 mg/dL (8.7-10.4) Urine Color Light-orange (Yellow) Urine Clarity Turbid (Clear) Urine pH 5.0 (5.0-9.0) Urine Specific [place] 1.012 (1.001-1.035) Urine Protein Negative (Negative) Urine Ketones Negative (Negative) Urine Blood Negative /uL (Negative) Urine Nitrite Negative (Negative) Urine Bilirubin Negative (Negative) Urine Urobilinogen Normal mg/dL (Negative) Urine Leukocyte Esterase 3+ /uL (Negative) Urine RBC 81 /hpf (0 - 4) Urine Microscopic WBC 23 /HPF (0-5) Urine Squamous Epithelial Cells Mod /hpf (<5) Urine Bacteria Few /hpf (None Seen) Urine Hyaline Casts Few /lpf (0 - 2) Urine Mucus Few (None Seen) Urine Creatinine 232.29 mg/dL (30.0-125.0) Urine Protein/Creatinine Ratio 0.16 Urine Glucose Normal mg/dL (Normal) Urine Total Protein 36.1 mg/dL (1-14) Total Bilirubin 0.5 mg/dL (0.2-1.0) Aspartate Amino Transferase (AST) 19 U/L (13-40) Alanine Aminotransferase (ALT) 14 U/L (7-40) Alkaline Phosphatase 158 U/L (46-116) Total Protein 6.6 g/dL (5.7-8.2) Albumin 3.9 g/dL (3.2-4.8) Troponin I High Sensitivity 14 ng/L (</=34) Test 10/01/24 17:03 10/01/24 16:40 Lactic Acid Level 1.9 mmol/L (0.4-2.0) Lipase 36 U/L (12-53) POC Glucose 121 mg/dl (70-106) Other Laboratory Tests 10/03/24 06:40 Brief Hx & Hospital Course: Mrs. Anaya Jackman is a 69 year old female with a history of hypertension who presents with chief complaint of headache. Patient reports that she has been experience a headache, dizziness, lightheadedness with associated generalized malaise for the past 2 days. Patient relays that she also had episodes of nausea and vomiting, but it has since resolved. Patient found to have blood pressure of 81/50. Patient does not consistently take her blood pressure for true evaluation. Patient denies any kidney disease history. Patient denies any abdominal pain, chest pain, SOB, dizziness, fever, or chills. She is admitted and all her blood pressure medications have been discontinued to low blood pressure. Patient received IV fluids. Her kidney function has slightly improved. She is evaluated by assistant laboratory director. MRI of the brain did not reveal any evidence of stroke or TIA. Her blood pressure is normalized and she is feeling better back to normal baseline status. Patient advised to stop her home lisinopril and hydrochlorothiazide. She is advised to continue her metoprolol and amlodipine has been prescribed for blood pressure control. She is advised to check her blood pressure daily at home to keep it below 140/80 and have a close follow up with the primary care physician and assistant laboratory director. Home blood pressure monitor kit is also prescribed. Have talked with the patient regarding her hospital diagnosis, adjustment in her medications, discharge follow up plan of care and hospital course. She has verbalized understanding of these and agree with care plan as outlined. Consults/Reason for consult PROCEDURE(s): KIDUS - KIDNEY REASON: saranya ORDER NUMBER(s): [id number], ACCESSION NUMBER(s): [id number] INDICATION: saranya TECHNIQUE: Multiple real-time sonographic images of the kidneys and bladder were obtained. COMPARISON: None FINDINGS: RIGHT kidney measures 7.3 cm in length with decreased cortical thickness. No hydronephrosis. LEFT kidney measures 8.2 cm in length with decreased cortical thickness. No hydronephrosis. No large intraluminal masses are seen in the bladder. Post void residual was not assessed. IMPRESSION: 1. Decreased bilateral renal cortical thickness. Otherwise, unremarkable examination. Operations or Procedures APPROVED REPORT EXAM: Two-dimensional and M-mode echocardiogram with Doppler and color Doppler. Blood Pressure: 114/71 mmHg INDICATION HTN RISK FACTORS Height: 5'2", Weight: 119 DIMENSIONS LVDd 3.6 (3.8-5.7cm) LA (2D) 3.4 (1.9-4.0cm) Aortic Root 3.0 (2.0- 3.7cm) LVDs 2.5 (2.5-4.0cm) LA (MM) (1.9-4.0cm) Aortic Cusp Exc 1.7 (1.5- 2.0cm) EF (%) 65.0 (55-70%) Rt. Atrium 3.4 (1.9-4.0cm) Asc. Aorta cm IVSd 1.0 (0.7-1.1cm) RV (D) (1.8-2.4cm) PWd 1.1 (0.7-1.1cm) Mitral Valve Mitral Mitral Stenosis E wave 0.69m/s MV Mean GR. mmHg A wave 0.86m/s MV Peak GR. mmHg E/A ratio 0.8 2D MVA cm2 DECEL Time 340ms PRESS 1/2 Time ms Aortic Valve Aortic Valve Aortic Stenosis V1 1.56m/s AO Mean GR. 8mmHg V2 2.03m/s AO Peak GR. 16mmHg LVOT Diameter 1.8 (1.8-2.4cm) Doppler MONIKA 1.95cm2 Pulmonic Valve V2 0.99m/s Other Information Technically limited study due to body habitus. Conclusion MILD LVH AND MILD LV DIASTOLIC DYSFUNCTION LV EF IS 65% CALCIFIED AORTIC LEAFLETS AORTIC SCLEROSIS NORMAL MV,TV AND PV NORMAL RV FUNCTION AND SIZE NO EFFUSION SIGNED BY: WALE ZHOU MD SIGNED DATE/TIME: 10/02/24 4701 Condition at Discharge: Stable Final Diagnosis/Problems List Hypotension secondary to multiple blood pressure medications resolved, hypertensive heart disease, CKD III Discharge Disposition: Home Discharge Instruct/Medications Diet: Consistent carbohydrate, Cardiac 2g Na,low cholest Activity: No Restrictions, As Tolerated Follow Up/Referral: Primary care physician next week to check your blood pressure and continue doctor after two weeks to check your kidney function and blood pressure manage Medications: Stopped taking home hydrochlorothiazide and lisinopril. Continue metoprolol for blood pressure as you were taking. Take amlodipine daily as prescribed when systolic blood pressure is above 140 Scheduled Amlodipine Besylate (Amlodipine Besylate), 1 TAB PO DAILY Ciprofloxacin Hcl (Cipro), 1 TAB PO BID Hctz (Hydrochlorothiazide), 1 TAB PO DAILY, (Reported) Lisinopril (Lisinopril), 1 TAB PO DAILY, (Reported) Metoprolol Tartrate (Lopressor), 1 TAB PO BID, (Reported) Scheduled PRN Nabumetone (Nabumetone), 1 TAB PO BID PRN Durable Medical Equipment Misc. Devices (Blood Pressure Monitor), EA XX DAILY, (DME) Discharge Statement: "Patient was advised to return to the ER or call 911 if any headaches, dizziness, shortness of breath, chest pain, abdominal pain, bleeding, fevers, or worsening of medical condition. Patient was counseled about treatment plan, medications, possible side effects, patientverbalized understanding. All questions were answered to the best of my ability. This discharge took greater then 30 minutes in planning, reviewing documentation, counseling the patient, and discussing with other team members." ASSESSMENT ASSESSMENT Assessment Hypotension secondary to multiple blood pressure medications resolved, hypertensive heart disease, CKD III DANN GRANT MD Oct 03, 2024 12:35
--- NOTE | 2024-10-05 15:21 | ECG ---
[facility] Test Date: 2024-10-01 Test Time: 19:39:00 Pat Name: MONICA PACE Department: ED Room: [facility] A Gender: F Multimedia Developer: CHRISTINA : 1955 Requested By: CATHRYN AWAN Order Number: [id number] Reading MD: Christiano Britton Measurements Intervals [place] Rate: 69 P: 68 OK: 170 QRS: 58 QRSD: 108 T: 74 QT: 401 QTc: 430 Interpretive Statements Sinus rhythm Right atrial enlargement Abnormal R-wave progression, early transition Artifact in lead(s) I,II,aVR,aVL,aVF,V2,V6 Electronically Signed On 10-05-2024 15:51:51 PDT by Christiano Britton Please click the below link to view image of tracing.
== END 2024-10-03 17:45 | disposition home or self-care (01) | DRG 683 ==
LOC: ER 16:21 → OVERFLOW 10-02 01:20 → TELE-WESTW 10-02 03:41
PROVIDERS: ADMIT Nurse Practitioner Family; ATTEND Nurse Practitioner Family
DX: N17.9 Acute kidney failure, unspecified (principal); E87.1 Hypo-osmolality and hyponatremia; I95.2 Hypotension due to drugs; D72.829 Elevated white blood cell count, unspecified; T50.995A Adverse effect of other drugs, medicaments and biological substances, initial encounter; N18.30 Chronic kidney disease, stage 3 unspecified; I13.10 Hypertensive heart and chronic kidney disease without heart failure, with stage 1 through stage 4 chronic kidney disease, or unspecified chronic kidney disease; Z98.891 History of uterine scar from previous surgery; Z98.51 Tubal ligation status; Z79.899 Other long term (current) drug therapy; Y92.89 Other specified places as the place of occurrence of the external cause
CPT/HCPCS: 36415; 70450; 70551; 71045; 76775; 80048; 80053; 81001; 82570; 82962; 83036; 83605; 83690; 84156; 84484; 85025; 87040; 93005; 93306; 96361; 96365; G0378; Q0162